=== PATIENT | male | born 1980 | race Caucasian/White ===

== ENCOUNTER 2024-05-02 13:18 | Emergency (ER) | payer SELFPAY ==
[~2024-05-02] VITALS: Ht 172.7 cm; Wt 90.7 kg
[2024-05-02] MEDS ORDERED: SODIUM CHLORIDE 0.9% 1,000 ML IV ONE (13:55)
[2024-05-02] MEDS ORDERED: ONDANSETRON HCl 4 MG/2 ML SDV IV ONE (13:55)
[2024-05-02 13:58] VITALS: BP 133/97
[2024-05-02 14:00] VITALS: BP 135/96
[2024-05-02] MEDS ORDERED: KETOROLAC TROMETHAMINE 15 MG/ML SDV IV ONE (14:10)
[2024-05-02 14:15] VITALS: BP 134/97
[2024-05-02 14:25] LABS: BASO% 0.4 % (0-3); EOS% 1.9 % (0-8); HEMATOCRIT 45.4 % (39.0-50.0); HEMOGLOBIN 15.4 g/dl (14.0-18.0); IMMATURE GRANULOCYTES 0.2 % (0.0-5.0); LYMPH% 25.2 % (15-41); MEAN CORPUSCULAR HGB 29.5 pG CALC (26.0-32.0); MEAN CORPUSCULAR HGB CONC 33.9 g/dL CAL (32.0-36.0); MONO% 12.6 % (2-13); NEUT# 4.82 thou/uL (1.82-7.42); NEUT% 59.7 % (42-76); RED BLOOD COUNT 5.22 mill/uL (4.70-6.10); RED CELL DISTRI WIDTH 12.5 % (11.5-15.5)
[2024-05-02 14:30] VITALS: BP 133/91
[2024-05-02 14:45] VITALS: BP 133/93
[2024-05-02 14:58] LABS: ALBUMIN 5.3 g/dL (3.2-5.0); BILIRUBIN, TOTAL 1.3 mg/dL (0.2-1.3); CREATININE 0.9 mg/dL (0.7-1.3); POTASSIUM 3.6 mmol/l (3.5-5.1); TOTAL PROTEIN 8.4 g/dL (6.3-8.2)
[2024-05-02 15:19] LABS: URINE BILIRUBIN - DIPSTICK Negative (NEGATIVE); URINE BLOOD DIPSTICK Trace-lysed (NEGATIVE); URINE GLUCOSE - DIPSTICK Negative (NEGATIVE); URINE KETONE 40 mg/dL (NEGATIVE); URINE LEUK ESTERASE Negative (NEGATIVE); URINE NITRITE - DIPSTICK Negative (Negative); URINE PH 5.5 (4.5-8.0); URINE PROTEIN - DIPSTICK Negative (NEG-TRACE); URINE SPECIFIC GRAVITY <=1.005; URINE UROBILINOGEN - DIPSTICK 0.2 E.U./dL (0.2)
[2024-05-02 15:22] LABS: URINE COLOR Light yellow
[2024-05-02] MEDS ORDERED: TAM75CAP PO (16:25)
[2024-05-02] MEDS ORDERED: ZOFRAN4 MG/TAB PO (16:25)
[2024-05-02 16:46] VITALS: BP 133/91
== END 2024-05-02 16:52 | disposition home or self-care (01) | DRG 153 ==
LOC: ED 13:18
PROVIDERS: Family Medicine
DX: J11.1 Influenza due to unidentified influenza virus with other respiratory manifestations (principal); I10 Essential (primary) hypertension; Z20.822 Contact with and (suspected) exposure to COVID-19
CPT/HCPCS: J1885; J2405; Q9967